=== PATIENT | female | born 1970 | race Caucasian/White ===

== ENCOUNTER → 2017-03-29 09:26 | Outpatient (CLI) | payer OTHER | END | disposition home or self-care (01) | LOC: D.RT 09:26 | DX: R06.09 Other forms of dyspnea (principal) ==

== ENCOUNTER → 2017-06-20 08:36 | Outpatient (CLI) | payer OTHER ==
[2017-06-22 07:27] LABS: ANA REFLEX - DIRECT Negative (Negative)
== END | disposition home or self-care (01) ==
LOC: D.RT 06-12 09:00 → D.LAB 06-12 10:00 → D.RT 08:36
PROVIDERS: Internal Medicine Pulmonary Disease
DX: R06.09 Other forms of dyspnea (principal)

== ENCOUNTER → 2018-06-25 09:32 | Outpatient (CLI) | payer OTHER | END | disposition home or self-care (01) | LOC: D.RT 09:32 | DX: J98.4 Other disorders of lung (principal) ==

== ENCOUNTER → 2018-10-22 08:39 | Outpatient (CLI) | payer OTHER | END | disposition home or self-care (01) | LOC: D.RT 10-16 13:00 → D.CT 10-16 13:45 → D.RT 08:39 | PROVIDERS: ATTEND Internal Medicine Pulmonary Disease | DX: J98.4 Other disorders of lung (principal) ==

== ENCOUNTER → 2019-04-15 10:53 | Outpatient (CLI) | payer OTHER | END | disposition home or self-care (01) | LOC: D.CT 10:53 | PROVIDERS: ATTEND Internal Medicine Pulmonary Disease | DX: R91.1 Solitary pulmonary nodule (principal) ==

== ENCOUNTER → 2019-10-17 08:31 | Outpatient (CLI) | payer OTHER | END | disposition home or self-care (01) | LOC: D.CT 08:31 | PROVIDERS: ATTEND Internal Medicine Pulmonary Disease | DX: R91.1 Solitary pulmonary nodule (principal) ==